=== PATIENT | male | born 1960 | race Caucasian/White ===

== ENCOUNTER → 2017-09-25 | Outpatient (CLI) | payer BC ==
--- NOTE | 2017-09-26 10:50 | PCVCIMAG ---
APPROVED REPORT Exam: Stress Echocardiogram Indication: Abnormal EKG, Dyspnea, Fatigue, coronary atherosclerosis Patient Location: Echo lab Stress Nurse: Tia Chiang RN Status: routine Ht: 5 ft 7 in HR: 100 bpm BP: 122/84 mmHg Rhythm: Sinus tachycardia w/ T wave abnormality Procedure The patient underwent an Exercise Stress Test using the Jay Protocol. Blood pressure, heart rate, and EKG were monitored. An Echocardiogram was performed by pattern technician in four stages in quad fashion. At peak stress, four selected images were obtained and placed side by side with resting images for comparison. Stress Test Details Stress Test: Exercise stress testing was performed using a Jay protocol. HR Resting HR: 100 bpmMax Heart Rate (APMHR): 163 bpm Max HR Achieved: 162 bpmTarget HR (85% APMHR): 138 bpm % of APMHR: 99 Recovery HR: 115 bpm HR response to stress: Normal HR response to stress BP Resting BP: 122/84 mmHg Max BP: 148/78 mmHg Recovery BP: 124/60 mmHg ECG Resting ECG: Sinus Rhythm with nonspecific T wave abnormality Stress ECG: Sinus Rhythm ST Change: Normal Arrhythmia: None Recovery ECG: Sinus Rhythm w/ nonspecific T wave abnormality Recovery ST Change: Normal Recovery Arrhythmia: None Clinical Reason for Termination: Dyspnea, Maximal effort Stress Symptoms: Dyspnea Exercise duration: 9 min sec Highest Stage Achieved: Stage 3: 3.4 mph at 14% grade. Exercise capacity: 10.1 METs Overall Exercise Capacity for Age: Normal Angina Score: None Pre-Stress Echo The resting Echocardiogram showed normal left ventricular contractility with an estimated Ejection Fraction of about >55%. Normal wall motion in all segments on baseline images. Post-Stress Echo The stress Echocardiogram showed normal left ventricular contractility with an estimated Ejection Fraction of about 65%. Normal augmentation of wall motion in all segments on post stress images. Clinical No clinical or ECG evidence for ischemia. Conclusion Clinical Response: Non-ischemic Exercise Capacity: Average Stress ECG Response: Non-ischemic Stress Echo Images: Non-ischemic The left ventricle is normal in size and wall thickness in both the rest and stress images. Other Information Study Quality: Adequate <Conclusion> The left ventricle is normal in size and wall thickness in both the rest and stress images.
== END | disposition home or self-care (01) ==
LOC: PCVCIMAG 14:45
PROVIDERS: ATTEND Internal Medicine Cardiovascular Disease
DX: I25.10 Atherosclerotic heart disease of native coronary artery without angina pectoris (principal); R94.31 Abnormal electrocardiogram [ECG] [EKG]; R06.00 Dyspnea, unspecified; R53.83 Other fatigue
CPT/HCPCS: 93325; 93351

== ENCOUNTER → 2019-08-30 | Outpatient (CLI) | payer BC ==
--- NOTE | 2019-08-30 18:06 | PCVCIMAG ---
APPROVED REPORT Study performed: 08/30/2019 13:37:19 Exam: Stress Echocardiogram Indication: CAD , Dyspnea , Chest pressure Patient Location: Echo lab Stress Nurse: Carmen Walker RN Room #: 2 Status: routine Ht: 5 ft 7 in HR: 98 bpm BP: 158/82 mmHg Rhythm: NSR Medical History Medical History: CAD non obstructive,LYN, Previous Cardiac Procedures: none Pretest Chest Pain Characteristics: No chest pain Exercise History: Physically active Procedure The patient underwent an Exercise Stress Test using the Jay Protocol. Blood pressure, heart rate, and EKG were monitored. An Echocardiogram was performed by build technician in four stages in quad fashion. At peak stress, four selected images were obtained and placed side by side with resting images for comparison. Stress Test Details Stress Test: Exercise stress testing was performed using a Jay protocol. HR Resting HR: 98 bpmMax Heart Rate (APMHR): 161 bpm Max HR Achieved: 171 bpmTarget HR (85% APMHR): 136 bpm % of APMHR: 106 Recovery HR: 114 bpm HR response to stress: Normal HR response to stress BP Resting BP: 158/82 mmHg Max BP: 162/78 mmHg Recovery BP: 150/72 mmHg BP response to stress: elevated at rest,normal response to exercise ECG Resting ECG: Sinus Rhythm Stress ECG: Sinus Rhythm ST Change: Non-ischemic Maximum ST Deviation: -1.2 mm Arrhythmia: freq PACs Recovery ECG: Sinus Rhythm Recovery ST Change: Non-ischemic Recovery ST Deviation: -0.60 mm Recovery Arrhythmia: PACs Clinical Reason for Termination: Maximal effort Stress Symptoms: fatgue,dyspnea Exercise duration: 8 min 01 sec Highest Stage Achieved: Stage 3: 3.4 mph at 14% grade. Exercise capacity: 10.1 METs Overall Exercise Capacity for Age: Normal Scale: Active Angina Score: None No complications. Stress ECG Conclusion [place] Treadmill Score is 14.0 which is Low risk. Pre-Stress Echo The resting Echocardiogram showed normal left ventricular contractility with an estimated Ejection Fraction of about 55-60%. Normal wall motion in all segments on baseline images. Post-Stress Echo The stress Echocardiogram showed normal left ventricular contractility with an estimated Ejection Fraction of about 65-70%. Normal augmentation of wall motion in all segments on post stress images. Clinical No clinical or ECG evidence for ischemia. Conclusion Clinical Response: Non-ischemic Exercise Capacity: Average Stress ECG Response: Non-ischemic Stress Echo Images: Non-ischemic No clinical, EKG or echocardiographic evidence for ischemia. No echocardiographic evidence for exercise induced ischemia. Normal stress echocardiogram with maximal exercise stress. Normal color doppler. No regurgitation or stenosis present on pulmonic, mitral, tricuspid and aortic valves. <Conclusion> No clinical, EKG or echocardiographic evidence for ischemia. No echocardiographic evidence for exercise induced ischemia. Normal stress echocardiogram with maximal exercise stress. Normal color doppler. No regurgitation or stenosis present on pulmonic, mitral, tricuspid and aortic valves.
== END | disposition home or self-care (01) ==
LOC: PCVCIMAG 13:12
PROVIDERS: ATTEND Internal Medicine Cardiovascular Disease
DX: I10 Essential (primary) hypertension (principal); I25.10 Atherosclerotic heart disease of native coronary artery without angina pectoris
CPT/HCPCS: 93325; 93351